=== PATIENT | male | born 1970 | race Caucasian/White ===

== ENCOUNTER 2016-12-08 00:31 | Emergency (ER) | payer BC ==
[~2016-12-08] VITALS: Ht 185.4 cm; Wt 88.0 kg
[~2016-12-08 00:31] MED LIST: AMLO10TA2 PO; ASPI-351; INFL100P IV
[2016-12-08 00:34] VITALS: BP 188/98; PULSE 82; RESP 16; TEMP 97.8; O2SAT 98
[2016-12-08 00:53] VITALS: BP 142/90; PULSE 93; RESP 18; O2SAT 98
[2016-12-08] MEDS ORDERED: SODIUM CHLOR 0.9% 1000 ML INJ 1,000 ML IV ONE (01:30)
[2016-12-08] MEDS ORDERED: KETOROLAC TROMETHAMINE 30 MG/ML (IVP) VIAL IV PUSH ONE (01:30)
--- NOTE | 2016-12-08 01:47 | RADRPT ---
EXAM DATE/TIME: 12/08/2016 01:28 [facility] COMPARISON: No previous studies available for comparison. INDICATIONS : Left sided abdominal pain. ORAL CONTRAST: No oral contrast ingested. RADIATION DOSE: 13.68 CTDIvol (mGy) MEDICAL HISTORY : Ulcerative colitis. Hypertension. Diverticulitis. SURGICAL HISTORY : None. ENCOUNTER: Initial ACUITY: 2 months PAIN SCALE: 7/10 LOCATION: Left abdomen TECHNIQUE: Volumetric scanning of the abdomen and pelvis was performed. Using automated exposure control and ad justment of the mA and/or kV according to patient size, radiation dose was kept as low as reasonably achievable to obtain optimal diagnostic quality images. DICOM format image data is available electro nically for review and comparison. FINDINGS: LOWER LUNGS: The visualized lower lungs are clear. LIVER: Diffusely decreased hepatic density characteristic of fatty infiltration. There is no dilation of th e biliary tree. No calcified gallstones. SPLEEN: Normal size without lesion. PANCREAS: Within normal limits. KIDNEYS: Normal in size and shape. Multiple nonobstructing subcentimeter calculi in the collecting system of t he left kidney. No hydronephrosis or hydroureter. ADRENAL GLANDS: Within normal limits. VASCULAR: There is no aortic aneurysm. BOWEL/MESENTERY: A few diverticula in the sigmoid colon without diverticulitis. ABDOMINAL WALL: Within normal limits. RETROPERITONEUM: There is no lymphadenopathy. BLADDER: No wall thickening or mass. REPRODUCTIVE: Prostate is prominent at 5.2 cm. INGUINAL: There is no lymphadenopathy or hernia. MUSCULOSKELETAL: Within normal limits for patient age. CONCLUSION: 1. There are multiple subcentimeter nonobstructing calculi in the left renal collecting system. No ur eteric stones or hydronephrosis, however. 2. Diffuse hepatic fatty infiltration. 3. Enlarged prostate. Jhonathan Munoz MD on December 08, 2016 at 1:42 Board Certified Radiologist. This report was verified electronically.
--- NOTE | 2016-12-08 02:06 | RADRPT ---
EXAM DATE/TIME: 12/08/2016 01:54 [facility] COMPARISON: CHEST SINGLE AP, April 12, 2016, 15:52. INDICATIONS : Left lower chest pain for several weeks. MEDICAL HISTORY : None. SURGICAL HISTORY : None. ENCOUNTER: Initial ACUITY: 2 weeks PAIN SCORE: 7/10 LOCATION: Left chest FINDINGS: PA and lateral views of the chest demonstrate the lungs to be symmetrically aerated without evidence of mass, infiltrate or effusion. The cardiomediastinal contours are unremarkable. Osseous structure s are intact with a dextroscoliosis of the dorsal spine. CONCLUSION: No acute cardiopulmonary process. Jhonathan Munoz MD on December 08, 2016 at 2:04 Board Certified Radiologist. This report was verified electronically.
[2016-12-08 02:34] LABS: AUTOMATED NEUTROPHIL # 4.3 TH/MM3 (1.8-7.7); BASOPHIL # 0.1 TH/MM3 (0-0.2); BASOPHIL % 0.9 % (0.0-2.0); BLOOD, URINE NEG (NEG); EOSINOPHIL # 0.2 TH/MM3 (0-0.4); EOSINOPHIL % 2.1 % (0.0-4.0); GLUCOSE,URINE NEG (NEG); HEMATOCRIT 46.8 % (39.0-51.0); HEMO FLAGS DIFF FINAL; KETONE, URINE TRACE mg/dL (NEG); LYMPHOCYTE # 3.5 TH/MM3 (1.0-4.8); MEAN CELL VOLUME 89.1 FL (80.0-100.0); MEAN CORPUSCULAR HEMOGLOBIN 30.7 PG (27.0-34.0); MEAN CORPUSCULAR HGB CONC 34.4 % (32.0-36.0); MONO % 12.8 % (0.0-8.0); MUCUS URINE FEW /lpf (OCC); NEUT % 46.2 % (16.0-70.0); NITRITE,URINE NEG (NEG); PLATELET COUNT 291 TH/MM3 (150-450); RED BLOOD COUNT 5.25 MIL/MM3 (4.50-5.90); RED CELL DISTRIBUTION WIDTH 12.6 % (11.6-17.2); URINE COLOR LIGHT-YELLOW (YELLW/STRAW); WHITE BLOOD COUNT 9.3 TH/MM3 (4.0-11.0)
[2016-12-08 02:35] LABS: COMMENT (UR) CULT NOT INDICATED; CULTURE IF INDICATED CULT NOT INDICATED
[2016-12-08 02:58] LABS: ALKALINE PHOSPHATASE 106 U/L (45-117); TOTAL BILIRUBIN ADULT 0.7 MG/DL (0.2-1.0)
[2016-12-08 03:15] LABS: ALT (GPT) 48 U/L (12-78); ANION GAP 8 MEQ/L (5-15); AST (GOT) 30 U/L (15-37); BLOOD UREA NITROGEN 14 MG/DL (7-18); CHLORIDE 102 MEQ/L (98-107); GLOMERULAR FILTRATION RATE 71 ML/MIN (>89); POTASSIUM 3.2 MEQ/L (3.5-5.1); SODIUM (NA) 138 MEQ/L (136-145)
--- NOTE | 2016-12-08 03:55 | PD ---
HPI Chief Complaint: Abdominal Pain Time Seen by Provider: 01:16 Travel History International Travel<30 days: No Contact w/Intl Traveler<30days: No Traveled to known affect area: No History of Present Illness HPI Patient is a 46-year-old male who comes in complaining of left-sided upper abdominal pain. He says he has had the pain on and off for the past 4 months. He says the pain seems to be getting a little bit worse, so he came in. He says the pain radiates around to his left flank. He denies any urinary symptoms. He denies any nausea or vomiting. He does have history of ulcerative colitis, and says recently he has developed some lower abdominal pain which is consistent with his ulcerative colitis. He denies any diarrhea or constipation. He denies having blood in his stool. 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 He has not had any fever or chills. PFSH Past Medical History Asthma: Yes (CHILDHOOD) Blood Disorders: No Anxiety: No Depression: No Heart Rhythm Problems: No Cancer: No Cardiac Catheterization: No Cardiovascular Problems: Yes High Cholesterol: No Congestive Heart Failure: No Diabetes: No Diminished Hearing: No Endocrine: No Gastrointestinal Disorders: Yes (ULCERATIVE COLITIS) GERD: Yes Genitourinary: No Hiatal Hernia: No Hypertension: Yes Immune Disorder: No Implanted Vascular Access Dvce: No Musculoskeletal: No Neurologic: No Psychiatric: No Reproductive: No Respiratory: No Immunizations Current: No Ulcer: Yes Past Surgical History Surgical History: No Previous Surgery Body Medical Devices: ULCERATIVE COLITIS Coronary Artery Bypass Graft: No Other Surgery: No Social History Alcohol Use: Yes (RARELY) Tobacco Use: No Substance Use: No Allergies-Medications (Allergen,Severity, Reaction): Coded Allergies: Azathioprine Sodium (Verified Allergy, Severe, NAUSEA, 12/08/16) Clindamycin (Verified Allergy, Severe, NAUSEA, 12/08/16) Erythromycins (Verified Allergy, Severe, Nausea/Vomiting, 12/08/16) EFFECTS COLITIS Imuran (Verified Allergy, Severe, NAUSEA, 12/08/16) Reported Meds & Prescriptions Reported Meds & Active Scripts Active Reported Amlodipine (Amlodipine Besylate) 10 Mg Tab 10 Mg PO DAILY Qc Aspirin Low Dose (Aspirin) 81 Mg Tab Remicade Inj (Infliximab) 100 Mg Inj 925 Mg IV Q8WEEK Review of Systems Except as stated in HPI: all other systems reviewed are Neg General / Constitutional: No: Fever, Chills HENT: No: Headaches, Lightheadedness Cardiovascular: No: Chest Pain or Discomfort Gastrointestinal: Positive: Abdominal Pain, No: Nausea, Vomiting Genitourinary: Positive: Flank Pain Skin: No Rash, No Change in Pigmentation Neurologic: No: Weakness, Dizziness Physical Exam Narrative GENERAL: Awake and alert, in no acute distress. SKIN: Focused skin assessment warm/dry. HEAD: Atraumatic. Normocephalic. EYES: Pupils equal and round. No scleral icterus. ENT: Mucous membranes pink and moist. NECK: Trachea midline. No JVD. CARDIOVASCULAR: Regular rate and rhythm. No murmur appreciated. RESPIRATORY: No accessory muscle use. Clear to auscultation. Breath sounds equal bilaterally. GASTROINTESTINAL: Abdomen soft, non-tender, nondistended. Mild left CVA tenderness. MUSCULOSKELETAL: No obvious deformities. No clubbing. No cyanosis. No edema. NEUROLOGICAL: Awake and alert. No obvious cranial nerve deficits. Motor grossly within normal limits. Normal speech. PSYCHIATRIC: Appropriate mood and affect; insight and judgment normal. Data Data Last Documented VS Vital Signs Date Time Temp Pulse Resp B/P Pulse Ox O2 Delivery O2 Flow Rate FiO2 12/08/16 04:00 98.1 86 18 138/78 100 12/08/16 00:53 Room Air Orders Complete Blood Count With Diff (12/08/16 01:23) Comprehensive Metabolic Panel (12/08/16 01:23) Urinalysis - C+S If Indicated (12/08/16 01:23) Chest, Pa & Lat (12/08/16 ) Ct Abd/Pel W/O Iv Contrast (12/08/16 ) Iv Access Insert/Monitor (12/08/16 01:23) Sodium Chlor 0.9% 1000 Ml Inj (Ns 1000 M (12/08/16 01:30) Ketorolac Inj (Toradol Inj) (12/08/16 01:30) Labs Laboratory Tests Test 12/08/16 01:37 White Blood Count 9.3 TH/MM3 Red Blood Count 5.25 MIL/MM3 Hemoglobin 16.1 GM/DL Hematocrit 46.8 % Mean Corpuscular Volume 89.1 FL Mean Corpuscular Hemoglobin 30.7 PG Mean Corpuscular Hemoglobin 34.4 % Concent Red Cell Distribution Width 12.6 % Platelet Count 291 TH/MM3 Mean Platelet Volume 8.6 FL Neutrophils (%) (Auto) 46.2 % Lymphocytes (%) (Auto) 38.0 % Monocytes (%) (Auto) 12.8 % Eosinophils (%) (Auto) 2.1 % Basophils (%) (Auto) 0.9 % Neutrophils # (Auto) 4.3 TH/MM3 Lymphocytes # (Auto) 3.5 TH/MM3 Monocytes # (Auto) 1.2 TH/MM3 Eosinophils # (Auto) 0.2 TH/MM3 Basophils # (Auto) 0.1 TH/MM3 CBC Comment DIFF FINAL Differential Comment Urine Color LIGHT-YELLOW Urine Turbidity CLEAR Urine pH 6.0 Urine Specific [place] 1.009 Urine Protein NEG mg/dL Urine Glucose (UA) NEG mg/dL Urine Ketones TRACE mg/dL Urine Occult Blood NEG Urine Nitrite NEG Urine Bilirubin NEG Urine Urobilinogen LESS THAN 2.0 MG/DL Urine Leukocyte Esterase NEG Urine RBC LESS THAN 1 /hpf Urine WBC LESS THAN 1 /hpf Urine Mucus FEW /lpf Microscopic Urinalysis Comment CULT NOT INDICATED Sodium Level 138 MEQ/L Potassium Level 3.2 MEQ/L Chloride Level 102 MEQ/L Carbon Dioxide Level 28.0 MEQ/L Anion Gap 8 MEQ/L Blood Urea Nitrogen 14 MG/DL Creatinine 1.12 MG/DL Estimat Glomerular Filtration 71 ML/MIN Rate Random Glucose 79 MG/DL Calcium Level 9.4 MG/DL Total Bilirubin 0.7 MG/DL Aspartate Amino Transf 30 U/L (AST/SGOT) Alanine Aminotransferase 48 U/L (ALT/SGPT) Alkaline Phosphatase 106 U/L Total Protein 9.1 GM/DL Albumin 4.7 GM/DL [facility] Medical Decision Making Medical Screen Exam Complete: Yes Emergency Medical Condition: Yes Differential Diagnosis UTI versus renal stone versus musculoskeletal pain versus pneumonia Narrative Course Patient is a 46-year-old male comes in complaining of left upper quadrant and left flank pain. Exam shows mild left CVA tenderness. IV established, labs sent. Labs show no acute abnormalities. Urinalysis is negative for infection. Patient given IV fluids and Toradol. Chest x-ray performed shows no acute abnormalities. CT abdomen and pelvis shows nonobstructing renal stones. Patient reports feeling better. He is informed of the results. Advised to increase his fluid intake. Advised follow-up with urology. Advised to return to the emergency department as needed for any worsening symptoms. Last 24 hours Impressions Chest X-Ray 12/08/16 0000 Signed Impressions: Service Date/Time: Thursday, December 08, 2016 01:54 - CONCLUSION: No acute cardiopulmonary process. Jhonathan Munoz MD Abdomen/Pelvis CT 12/08/16 0000 Signed Impressions: Service Date/Time: Thursday, December 08, 2016 01:28 - CONCLUSION: 1. There are multiple subcentimeter nonobstructing calculi in the left renal collecting system. No ureteric stones or hydronephrosis, however. 2. Diffuse hepatic fatty infiltration. 3. Enlarged prostate. Jhonathan Munoz MD Diagnosis Primary Impression: Renal stones Patient Instructions: General Instructions, Kidney Stones (ED) Additional Instructions: Drink plenty of fluids. Take ibuprofen as needed for pain. Follow-up with urology. Return to the emergency department as needed for any worsening symptoms. Disposition: 01 DISCHARGE HOME Condition: Stable Lulu Boo MD Dec 08, 2016 03:55
[2016-12-08 04:00] VITALS: BP 138/78; PULSE 86; RESP 18; TEMP 98.1; O2SAT 100
== END 2016-12-08 04:02 | disposition home or self-care (01) ==
LOC: NEPE 00:31
DX: N20.0 Calculus of kidney (principal); I10 Essential (primary) hypertension
CPT/HCPCS: 71020; 74176; 80053; 81001; 85025; 99285; J7030

== ENCOUNTER 2016-12-09 15:35 | Observation (INO) | payer BC ==
[2016-12-09 15:37] VITALS: BP 139/72; PULSE 68; RESP 22; TEMP 98.2; O2SAT 98
[2016-12-09 17:05] LABS: BASOPHIL # 0.1 TH/MM3 (0-0.2); BASOPHIL % 0.8 % (0.0-2.0); EOSINOPHIL # 0.1 TH/MM3 (0-0.4); EOSINOPHIL % 0.6 % (0.0-4.0); HEMATOCRIT 44.2 % (39.0-51.0); HEMO FLAGS DIFF FINAL; LYMPH % 14.6 % (9.0-44.0); LYMPHOCYTE # 1.9 TH/MM3 (1.0-4.8); MEAN CORPUSCULAR HEMOGLOBIN 30.5 PG (27.0-34.0); MEAN CORPUSCULAR HGB CONC 34.6 % (32.0-36.0); MONO % 7.4 % (0.0-8.0); NEUT % 76.6 % (16.0-70.0); PLATELET COUNT 282 TH/MM3 (150-450); RED BLOOD COUNT 5.02 MIL/MM3 (4.50-5.90); RED CELL DISTRIBUTION WIDTH 12.7 % (11.6-17.2)
[2016-12-09 17:21] LABS: BICARBONATE 22.3 MEQ/L (21.0-32.0)
[2016-12-09 18:11] VITALS: BP 129/70; PULSE 84; RESP 16; O2SAT 100
[2016-12-09] MEDS ORDERED: SODIUM CHLOR 0.9% 1000 ML INJ 1,000 ML IV SCH (18:19)
--- NOTE | 2016-12-09 18:24 | PD ---
HPI Chief Complaint: Flank/Kidney Pain Time Seen by Provider: 18:16 Travel History International Travel<30 days: No Contact w/Intl Traveler<30days: No Traveled to known affect area: No History of Present Illness HPI 46-year-old male with history of ulcerative colitis here for evaluation of left flank pain that radiates to his left lower abdomen. Pain started yesterday, and the patient was seen in the emergency department and had a CT abdomen pelvis which showed multiple subcentimeter left intrarenal stones without any ureteral stones. The patient was treated and released at that time. Pain returned today around 3:00 PM, sharp/pressure-like, 10 out of 10, constant, associated with nausea and vomiting. Patient also describes some dysuria. He denies hematochezia. No history of abdominal surgeries. PFSH Past Medical History Asthma: Yes (CHILDHOOD) Blood Disorders: No Anxiety: No Depression: No Heart Rhythm Problems: No Cancer: No Cardiac Catheterization: No Cardiovascular Problems: Yes High Cholesterol: No Congestive Heart Failure: No Diabetes: No Diminished Hearing: No Endocrine: No Gastrointestinal Disorders: Yes (ULCERATIVE COLITIS) GERD: Yes Genitourinary: No Hiatal Hernia: No Hypertension: Yes Immune Disorder: No Implanted Vascular Access Dvce: No Kidney Stones: Yes Musculoskeletal: No Neurologic: No Psychiatric: No Reproductive: No Respiratory: No Immunizations Current: No Ulcer: Yes Influenza Vaccination: No Past Surgical History Surgical History: No Previous Surgery Body Medical Devices: ULCERATIVE COLITIS Coronary Artery Bypass Graft: No Other Surgery: No Social History Alcohol Use: Yes (RARELY) Tobacco Use: No Substance Use: No Allergies-Medications (Allergen,Severity, Reaction): Coded Allergies: Azathioprine Sodium (Verified Allergy, Severe, NAUSEA, 12/08/16) Clindamycin (Verified Allergy, Severe, NAUSEA, 12/08/16) Erythromycins (Verified Allergy, Severe, Nausea/Vomiting, 12/08/16) EFFECTS COLITIS Imuran (Verified Allergy, Severe, NAUSEA, 12/08/16) Reported Meds & Prescriptions Reported Meds & Active Scripts Active Reported Amlodipine (Amlodipine Besylate) 10 Mg Tab 10 Mg PO DAILY Qc Aspirin Low Dose (Aspirin) 81 Mg Tab Remicade Inj (Infliximab) 100 Mg Inj 925 Mg IV Q8WEEK Review of Systems Except as stated in HPI: all other systems reviewed are Neg Physical Exam Narrative GENERAL: Well-developed, well-nourished, moderate distress secondary to pain. SKIN: Focused skin assessment warm/dry. No rash. HEAD: Atraumatic. Normocephalic. EYES: Pupils equal and round. No scleral icterus. No injection or drainage. ENT: Mucous membranes pink and moist. NECK: Trachea midline. No JVD. CARDIOVASCULAR: Regular rate and rhythm. RESPIRATORY: No accessory muscle use. Clear to auscultation. Breath sounds equal bilaterally. GASTROINTESTINAL: Abdomen soft, non-tender, nondistended. MUSCULOSKELETAL: No obvious deformities. No clubbing. No cyanosis. No edema. Moderate left CVA tenderness. No right CVA tenderness. No midline vertebral step-off or tenderness. NEUROLOGICAL: Awake and alert. No obvious cranial nerve deficits. Motor grossly within normal limits. Normal speech. PSYCHIATRIC: Appropriate mood and affect; insight and judgment normal. Data Data Last Documented VS Vital Signs Date Time Temp Pulse Resp B/P Pulse Ox O2 Delivery O2 Flow Rate FiO2 12/09/16 18:11 84 16 129/70 100 Room Air 12/09/16 15:37 98.2 Orders Complete Blood Count With Diff (12/09/16 16:17) Urinalysis - C+S If Indicated (12/09/16 16:17) Basic Metabolic Panel (Bmp) (12/09/16 16:17) Ct Abd/Pel W Iv Contrast(Rout) (12/09/16 18:19) Morphine Inj (Morphine Inj) (12/09/16 18:30) Ondansetron Inj (Zofran Inj) (12/09/16 18:30) Sodium Chlor 0.9% 1000 Ml Inj (Ns 1000 M (12/09/16 18:19) Iohexol 350 Inj (Omnipaque 350 Inj) (12/09/16 18:42) Ketorolac Inj (Toradol Inj) (12/09/16 19:15) Tamsulosin (Flomax) (12/09/16 19:15) Morphine Inj (Morphine Inj) (12/09/16 20:00) Ondansetron Inj (Zofran Inj) (12/09/16 20:00) Labs Laboratory Tests Test 12/09/16 12/09/16 16:40 16:45 White Blood Count 13.0 TH/MM3 Red Blood Count 5.02 MIL/MM3 Hemoglobin 15.3 GM/DL Hematocrit 44.2 % Mean Corpuscular Volume 88.0 FL Mean Corpuscular Hemoglobin 30.5 PG Mean Corpuscular Hemoglobin 34.6 % Concent Red Cell Distribution Width 12.7 % Platelet Count 282 TH/MM3 Mean Platelet Volume 8.3 FL Neutrophils (%) (Auto) 76.6 % Lymphocytes (%) (Auto) 14.6 % Monocytes (%) (Auto) 7.4 % Eosinophils (%) (Auto) 0.6 % Basophils (%) (Auto) 0.8 % Neutrophils # (Auto) 10.0 TH/MM3 Lymphocytes # (Auto) 1.9 TH/MM3 Monocytes # (Auto) 1.0 TH/MM3 Eosinophils # (Auto) 0.1 TH/MM3 Basophils # (Auto) 0.1 TH/MM3 CBC Comment DIFF FINAL Differential Comment Sodium Level 138 MEQ/L Potassium Level 4.0 MEQ/L Chloride Level 103 MEQ/L Carbon Dioxide Level 22.3 MEQ/L Anion Gap 13 MEQ/L Blood Urea Nitrogen 16 MG/DL Creatinine 1.43 MG/DL Estimat Glomerular Filtration 53 ML/MIN Rate Random Glucose 160 MG/DL Calcium Level 9.9 MG/DL Urine Color YELLOW Urine Turbidity CLEAR Urine pH 5.5 Urine Specific [place] 1.021 Urine Protein NEG mg/dL Urine Glucose (UA) 300 mg/dL Urine Ketones 40 mg/dL Urine Occult Blood NEG Urine Nitrite NEG Urine Bilirubin NEG Urine Urobilinogen LESS THAN 2.0 MG/DL Urine Leukocyte Esterase NEG Urine WBC LESS THAN 1 /hpf Urine Squamous Epithelial <1 /hpf Cells Urine Mucus FEW /lpf Microscopic Urinalysis Comment CULT NOT INDICATED MDM Medical Decision Making Medical Screen Exam Complete: Yes Emergency Medical Condition: Yes Medical Record Reviewed: Yes Differential Diagnosis Nephrolithiasis, ureterolithiasis, pyelonephritis, colitis, diverticulitis, Narrative Course Vital signs show heart rate 68, blood pressure 139/72, pulse ox 98% on room air , oral temp of 98.2F. CBC shows WBC 13, hemoglobin 15.3, hematocrit 44.2, platelets 282, neutrophils 76.6%. BMP is remarkable for creatinine 1.43, GFR 53, random glucose 160. UA shows 300 glucose, 40 ketones, few mucus, negative occult blood, negative nitrites, negative leukocyte esterase. CT abdomen pelvis: CONCLUSION: 1. Distal left ureteral calculus measuring 3 mm with mild hydro-nephrosis and hydroureter and inflammatory change surrounding the left kidney. 2. Moderate hepatic steatosis. 3. Small hiatal hernia. Patient was initially given a dose of morphine and Zofran and a liter of normal saline IV. On reassessment he is still complaining of pain. He was given a dose of Toradol and was reassessed about 45 minutes later. He is still complaining of pain, nausea, and had a couple more episodes of vomiting. Pain is 8 out of 10 after receiving a dose of morphine and a dose of Toradol. I will give him another dose of morphine. Given ongoing pain with nausea, he'll be admitted for overnight observation for further management of his symptoms with ureterolithiasis. Case discussed with hospitalist Dr. Paul who will admit the patient to his service for overnight observation. Diagnosis Primary Impression: Ureterolithiasis Additional Impressions: Left flank pain Nausea and vomiting Qualified Code: R11.2 - Nausea and vomiting, intractability of vomiting not specified, unspecified vomiting type Admitting Information Admitting Physician Requests: Observation Jatin Ritchie MD Dec 09, 2016 18:24
[2016-12-09 18:29] LABS: BLOOD, URINE NEG (NEG); COMMENT (UR) CULT NOT INDICATED; CULTURE IF INDICATED CULT NOT INDICATED; GLUCOSE,URINE 300 mg/dL (NEG); KETONE, URINE 40 mg/dL (NEG); MUCUS URINE FEW /lpf (OCC); NITRITE,URINE NEG (NEG); PH, URINE 5.5 (5.0-8.5); SQUAMOUS EPITHELIAL CELL URINE <1 /hpf (0-5); URINE COLOR YELLOW (YELLW/STRAW)
[2016-12-09] MEDS ORDERED: MORPHINE SULFATE 4 MG/ML INJ IV PUSH ONE ×2 (18:30→20:00)
[2016-12-09] MEDS ORDERED: ONDANSETRON HCL 4 MG/2 ML VIAL IVP ONE (18:30)
[2016-12-09] MEDS ORDERED: IOHEXOL 350 MG/ML 10 ML VIAL (for RAD DIAG) IV ONE (18:42)
--- NOTE | 2016-12-09 18:56 | RADRPT ---
EXAM DATE/TIME: 12/09/2016 18:35 [facility] COMPARISON: CT ABDOMEN & PELVIS W CONTRAST, September 02, 2010, 18:41. INDICATIONS : Left flank pain; increased pain since yesterday with nausea and vomiting. IV CONTRAST: 71 cc Omnipaque 350 (iohexol) IV ORAL CONTRAST: No oral contrast ingested. RADIATION DOSE: 9.96 CTDIvol (mGy) MEDICAL HISTORY : Cardiovascular disease. Hypertension. SURGICAL HISTORY : None. ENCOUNTER: Subsequent ACUITY: 2 days PAIN SCALE: 10/10 LOCATION: Left flank TECHNIQUE: Volumetric scanning of the abdomen and pelvis was performed. Using automated exposure control and ad justment of the mA and/or kV according to patient size, radiation dose was kept as low as reasonably achievable to obtain optimal diagnostic quality images. DICOM format image data is available electro nically for review and comparison. FINDINGS: LOWER LUNGS: The visualized lower lungs are clear. LIVER: Homogeneous density without lesion. There is no dilation of the biliary tree. No calcified gallston es. There is moderate hepatic steatosis. SPLEEN: Normal size without lesion. PANCREAS: Within normal limits. KIDNEYS: The right kidney is unremarkable in appearance. Left kidney is normal in size and shape with mildly d elayed nephrogram and mild hydronephrosis. There is surrounding inflammatory change along the medial and anterior aspect of the kidney extending along the psoas muscle. There is slight prominence of the left ureter with the distal left ureteral calculus which is projected at the level of the ureteroves icular junction. This measures 3 mm in diameter. ADRENAL GLANDS: Within normal limits. VASCULAR: There is no aortic aneurysm. BOWEL/MESENTERY: The stomach, small bowel, and colon demonstrate no acute abnormality. There is no free intraperitone al air or fluid. There is a small hiatal hernia. ABDOMINAL WALL: Within normal limits. RETROPERITONEUM: There is no lymphadenopathy. BLADDER: No wall thickening or mass. REPRODUCTIVE: Within normal limits. INGUINAL: There is no lymphadenopathy or hernia. MUSCULOSKELETAL: Within normal limits for patient age. CONCLUSION: 1. Distal left ureteral calculus measuring 3 mm with mild hydro-nephrosis and hydroureter and inflamm atory change surrounding the left kidney. 2. Moderate hepatic steatosis. 3. Small hiatal hernia. Eduin Hussein MD on December 09, 2016 at 18:52 Board Certified Radiologist. This report was verified electronically.
[2016-12-09] MEDS ORDERED: KETOROLAC TROMETHAMINE 30 MG/ML (IVP) VIAL IV PUSH ONE (19:15)
[2016-12-09] MEDS ORDERED: TAMSULOSIN HCL 0.4 MG CAP PO ONE (19:15)
[2016-12-09] MEDS: SODIUM CHLOR 0.9% 1000 ML INJ 1,000 ML IV SCH (19:52)
[2016-12-09] MEDS ORDERED: ONDANSETRON HCL 4 MG/2 ML VIAL IV PUSH ONE (20:00)
[2016-12-09] MEDS ORDERED: BISACODYL 10 MG SUPP RECTAL PRN (20:00)
[2016-12-09] MEDS ORDERED: ONDANSETRON HCL 4 MG/2 ML VIAL IVP PRN (20:00)
[2016-12-09] MEDS ORDERED: MAGNESIUM HYDROXIDE SUSP 30 ML CUP PO PRN (20:00)
[2016-12-09] MEDS ORDERED: ACETAMINOPHEN 325 MG TAB PO PRN ×2 (20:00)
[2016-12-09] MEDS ORDERED: LACTULOSE SYRUP 20 GM/30 ML CUP PO PRN (20:00)
[2016-12-09] MEDS ORDERED: MORPHINE SULFATE 4 MG/ML INJ IV PRN ×2 (20:00)
[2016-12-09] MEDS ORDERED: SENNOSIDES 8.6 MG TAB PO PRN (20:00)
[2016-12-09] MEDS ORDERED: NALOXONE HCL 0.4 MG/ML AMP IV PRN (20:00)
--- NOTE | 2016-12-09 20:57 | HHI.HP ---
[facility] No Primary Care Physician Admission Diagnosis ureterolithiasis, intractable pain, nausea and vomiting Diagnoses: Chief Complaint: abdominal pain, N/V Travel History International Travel<30 Days: No Contact w/Intl Traveler <30 Da: No Traveled to Known Affected Are: No History of Present Illness Written by HILDA Aleman acting as scribe for Dr. Kaur] on 12/09/16 at 20:53. 46 y/o male with a history of HTN, ulcerative colitis presented to the ED with complaints of nausea, vomiting and left abdominal pain. Patient was seen in the ED on Saturday, diagnosed with a kidney stone and discharged. He states since Saturday the pain has gotten much worse and it radiates to his back. He has been nauseated and vomiting every day, unable to keep anything down. Denies any chest pain, sob, or fevers. He does state he has felt very cold. Review of Systems Constitutional: COMPLAINS OF: Chills, DENIES: Fever Respiratory: DENIES: Cough, Shortness of breath Cardiovascular: DENIES: Chest pain, Lower Extremity Edema Gastrointestinal: COMPLAINS OF: Abdominal pain, Diarrhea, Nausea, Vomiting, DENIES: Constipation Genitourinary: DENIES: Hematuria, Dysuria Musculoskeletal: COMPLAINS OF: Back pain, DENIES: Neck pain Integumentary: DENIES: Rash Hematologic/lymphatic: DENIES: Lymphadenopathy Immunologic/allergic: DENIES: Urticaria Neurologic: DENIES: Headache Past Family Social History Past Medical History Ulcerative colitis HTN Past Surgical History Patient denies any surgical history Reported Medications Reported Meds & Active Scripts Active Reported Amlodipine (Amlodipine Besylate) 10 Mg Tab 10 Mg PO DAILY Qc Aspirin Low Dose (Aspirin) 81 Mg Tab Remicade Inj (Infliximab) 100 Mg Inj 925 Mg IV Q8WEEK Allergies: Coded Allergies: Azathioprine Sodium (Verified Allergy, Severe, NAUSEA, 12/08/16) Clindamycin (Verified Allergy, Severe, NAUSEA, 12/08/16) Erythromycins (Verified Allergy, Severe, Nausea/Vomiting, 12/08/16) EFFECTS COLITIS Imuran (Verified Allergy, Severe, NAUSEA, 12/08/16) Active Ordered Medications Current Medications Medications (Trade) Dose Ordered Sig/[place] Route Start Time Stop Time Status Last Admin (NS 1000 ml Inj) 1,000 ml @ 100 mls/hr Q10H IV 12/09/16 19:52 12/09/16 19:52 (Tylenol) 650 mg Q4H PRN PO 12/09/16 20:00 (Zofran Inj) 4 mg Q6H PRN IVP 12/09/16 20:00 (Tylenol) 650 mg Q6H PRN PO 12/09/16 20:00 (Morphine Inj) 2 mg Q3H PRN IV 12/09/16 20:00 (Morphine Inj) 4 mg Q3H PRN IV 12/09/16 20:00 (Narcan Inj) 0.4 mg UNSCH PRN IV 12/09/16 20:00 (Milk Of Magnesia Liq) 30 ml Q12H PRN PO 12/09/16 20:00 (Senokot) 17.2 mg Q12H PRN PO 12/09/16 20:00 (Dulcolax Supp) 10 mg DAILY PRN RECTAL 12/09/16 20:00 (Lactulose Liq) 30 ml DAILY PRN PO 12/09/16 20:00 Family History Mom: Heart disease Dad: Cancer Social History Tobacco use: Denies Alcohol use: Rarely Illicit drug use: Denies Physical Exam Vital Signs Vital Signs Date Time Temp Pulse Resp B/P Pulse Ox O2 Delivery O2 Flow Rate FiO2 12/09/16 18:11 84 16 129/70 100 Room Air 12/09/16 15:37 98.2 68 22 139/72 98 Physical Exam GENERAL: This is a well-nourished, well-developed patient, in no apparent distress. SKIN: No rashes, ecchymoses or lesions. Cool and dry. HEAD: Atraumatic. Normocephalic. EYES: Pupils equal round and reactive. Extraocular motions intact. ENT: Nose without bleeding, purulent drainage or septal hematoma. Throat without erythema, tonsillar hypertrophy or exudate. Uvula midline. Airway patent. NECK: Trachea midline. No JVD or lymphadenopathy. Supple, nontender, no meningeal signs. CARDIOVASCULAR: Regular rate and rhythm without murmurs, gallops, or rubs. RESPIRATORY: Clear to auscultation. Breath sounds equal bilaterally. No wheezes , rales, or rhonchi. GASTROINTESTINAL: Abdomen soft, LLQ tenderness, nondistended. No hepato- splenomegaly, or palpable masses. No guarding. Left CVA tenderness MUSCULOSKELETAL: Extremities without clubbing, cyanosis, or edema. No joint tenderness, effusion, or edema noted. No calf tenderness. NEUROLOGICAL: Awake and alert. Motor and sensory grossly within normal limits. Normal speech. Laboratory Laboratory Tests Test 12/09/16 12/09/16 16:40 16:45 White Blood Count 13.0 Red Blood Count 5.02 Hemoglobin 15.3 Hematocrit 44.2 Mean Corpuscular Volume 88.0 Mean Corpuscular Hemoglobin 30.5 Mean Corpuscular Hemoglobin 34.6 Concent Red Cell Distribution Width 12.7 Platelet Count 282 Mean Platelet Volume 8.3 Neutrophils (%) (Auto) 76.6 Lymphocytes (%) (Auto) 14.6 Monocytes (%) (Auto) 7.4 Eosinophils (%) (Auto) 0.6 Basophils (%) (Auto) 0.8 Neutrophils # (Auto) 10.0 Lymphocytes # (Auto) 1.9 Monocytes # (Auto) 1.0 Eosinophils # (Auto) 0.1 Basophils # (Auto) 0.1 CBC Comment DIFF FINAL Differential Comment Sodium Level 138 Potassium Level 4.0 Chloride Level 103 Carbon Dioxide Level 22.3 Anion Gap 13 Blood Urea Nitrogen 16 Creatinine 1.43 Estimat Glomerular Filtration 53 Rate Random Glucose 160 Calcium Level 9.9 Urine Color YELLOW Urine Turbidity CLEAR Urine pH 5.5 Urine Specific [place] 1.021 Urine Protein NEG Urine Glucose (UA) 300 Urine Ketones 40 Urine Occult Blood NEG Urine Nitrite NEG Urine Bilirubin NEG Urine Urobilinogen LESS THAN 2.0 Urine Leukocyte Esterase NEG Urine WBC LESS THAN 1 Urine Squamous Epithelial <1 Cells Urine Mucus FEW Microscopic Urinalysis Comment CULT NOT INDICATED Result Diagram: 12/09/16 1640 12/09/16 1640 Imaging Last Impressions Abdomen/Pelvis CT 12/09/161818 Signed Impressions: Service Date/Time: Friday, December 09, 2016 18:35 - CONCLUSION: 1. Distal left ureteral calculus measuring 3 mm with mild hydro-nephrosis and hydroureter and inflammatory change surrounding the left kidney. 2. Moderate hepatic steatosis. 3. Small hiatal hernia. Eduin Hussein MD Assessment and Plan Problem List: (1) Ureterolithiasis ICD Code: N20.1 Status: Acute (2) Acute kidney injury ICD Code: N17.9 Status: Acute (3) Leukocytosis ICD Code: D72.829 Status: Acute Assessment and Plan 46 y/o male with a history of HTN, ulcerative colitis presented to the ED with complaints of nausea, vomiting and left abdominal pain. Ureterolithiasis Abdomen CT reviewed and shows Distal left ureteral calculus measuring 3 mm with mild hydro-nephrosis and hydroureter and inflammatory change surrounding the left kidney. Moderate hepatic steatosis. Small hiatal hernia. -IVF for hydration -Morphine IV for pain management Leukocytosis, likely reactive due to pain from kidney stone UA unremarkable -CBC in AM, cont to trend VONDA, likely due to dehydration -Cont IVF -BMP in AM DVT prophylaxis: SCDs This note was transcribed by georgia Banegas. I, Dr. Ever Paul personally performed the history, physical exam, and medical decision making; and confirmed the accuracy of the information in the transcribed note. Authenticated by Dr. Ever Paul on 12/09/16 at 21:45. Discussed Condition With Patient and ED physician Jazmine Banegas Dec 09, 2016 20:56 Ever Paul MD Dec 09, 2016 21:46
[2016-12-09 21:40] VITALS: BP 127/67; PULSE 77; RESP 14; TEMP 98.4; O2SAT 99
[2016-12-10] VITALS: BP 111/62; PULSE 78; RESP 16; TEMP 97.9; O2SAT 99
[2016-12-10 04:15] VITALS: BP 125/75; PULSE 80; RESP 14; TEMP 98.1; O2SAT 98
[2016-12-10] MEDS: SODIUM CHLOR 0.9% 1000 ML INJ 1,000 ML IV SCH ×2 (05:40→16:25)
[2016-12-10 07:09] VITALS: BP 118/71; PULSE 78; RESP 12; TEMP 98.6; O2SAT 99
[2016-12-10] MEDS ORDERED: ACETAMINOPHEN/HYDROcodone 325 MG/5 MG TAB PO PRN (07:45)
[2016-12-10 08:24] LABS: AUTOMATED NEUTROPHIL # 9.1 TH/MM3 (1.8-7.7); BASOPHIL % 0.2 % (0.0-2.0); HEMATOCRIT 42.1 % (39.0-51.0); HEMO FLAGS DIFF FINAL; LYMPHOCYTE # 1.8 TH/MM3 (1.0-4.8); MEAN CELL VOLUME 89.6 FL (80.0-100.0); MEAN CORPUSCULAR HEMOGLOBIN 30.3 PG (27.0-34.0); MEAN CORPUSCULAR HGB CONC 33.9 % (32.0-36.0); MONO % 10.4 % (0.0-8.0); NEUT % 74.4 % (16.0-70.0); PLATELET COUNT 233 TH/MM3 (150-450); RED CELL DISTRIBUTION WIDTH 12.9 % (11.6-17.2); WHITE BLOOD COUNT 12.3 TH/MM3 (4.0-11.0)
[2016-12-10 08:50] LABS: POTASSIUM 3.6 MEQ/L (3.5-5.1)
--- NOTE | 2016-12-10 10:21 | HHI.PR ---
Subjective Remarks Follow-up for nephrolithiasis. The patient reports some improvement in flank pain overnight, although it is still present. He continues to have some nausea , but has been tolerating diet with no vomiting. He has not noticed if he has passed the stone. He denies any hematuria. Objective Vitals Vital Signs Date Time Temp Pulse Resp B/P Pulse Ox O2 Delivery O2 Flow Rate FiO2 12/10/16 07:09 98.6 78 12 118/71 99 12/10/16 04:15 98.1 80 14 125/75 98 12/10/16 00:00 97.9 78 16 111/62 99 12/09/16 21:40 98.4 77 14 127/67 99 12/09/16 18:11 84 16 129/70 100 Room Air 12/09/16 15:37 98.2 68 22 139/72 98 I/O 12/09/16 12/09/16 12/09/16 12/10/16 12/10/16 12/10/16 07:00 15:00 23:00 07:00 15:00 23:00 Intake Total 1240 ml Output Total 1100 ml Balance 140 ml Intake Oral 240 ml IV Total 1000 ml Output Urine Total 1100 ml Result Diagram: 12/10/16 0642 12/10/16 0642 Imaging Last Impressions Abdomen/Pelvis CT 12/09/161818 Signed Impressions: Service Date/Time: Friday, December 09, 2016 18:35 - CONCLUSION: 1. Distal left ureteral calculus measuring 3 mm with mild hydro-nephrosis and hydroureter and inflammatory change surrounding the left kidney. 2. Moderate hepatic steatosis. 3. Small hiatal hernia. Eduin Hussein MD Objective Remarks GENERAL: Well-developed well-nourished. In no acute distress. SKIN: Warm and dry. No lesions noted. HEENT: Normocephalic. Pupils equal and round. Mucous membranes pink and moist. CARDIOVASCULAR: Regular rate and rhythm. No murmur appreciated. RESPIRATORY: No accessory muscle use. Clear to auscultation. Breath sounds equal bilaterally. GASTROINTESTINAL: Abdomen soft, non-tender, nondistended. Bowel sounds x4. MUSCULOSKELETAL: No obvious deformities. No clubbing or cyanosis. No edema. NEUROLOGICAL: Awake and alert. No focal neurological deficits. Moves upper and lower extremities spontaneously. Normal speech. PSYCHIATRIC: Appropriate mood and affect; insight and judgment normal. A/P Problem List: (1) Ureterolithiasis ICD Code: N20.1 Status: Acute (2) Acute kidney injury ICD Code: N17.9 Status: Acute (3) Leukocytosis ICD Code: D72.829 Status: Acute Assessment and Plan 46 y/o male with a history of HTN, ulcerative colitis presented to the ED with complaints of nausea, vomiting and left abdominal pain. Ureterolithiasis Abdomen CT reviewed and shows distal left ureteral calculus measuring 3 mm with mild hydro-nephrosis and hydroureter and inflammatory change surrounding the left kidney. Moderate hepatic steatosis. Small hiatal hernia. -IVF for hydration -[place] and Morphine IV prn for pain management -Start Flomax -Strain urine -Check renal ultrasound -Likely outpatient urology follow-up, but will consult if needed Leukocytosis, likely reactive due to pain from kidney stone: UA unremarkable. Afebrile. -Follow CBC VONDA, probably multifactorial from dehydration from vomiting and postrenal from hydronephrosis. Creatinine 1.43 to admission, previously 1.12 on 12/08/16. Creatinine did slightly increase overnight at 1.53. -Cont IVF -Follow BMP Hepatic steatosis: Incidentally seen on abdominal CT. Patient informed of the findings. -Low fat diet -Follow-up with gastroenterology, sees Dr. Patton, for outpatient monitoring DVT prophylaxis: SCDs Discharge Planning Clinically improving, but still with multiple lab abnormalities. Monitor clinically, possible discharge later today or tomorrow Juan Phelps Dec 10, 2016 10:21
[2016-12-10 11:14] VITALS: BP 131/78; PULSE 75; RESP 20; TEMP 97.7; O2SAT 95
--- NOTE | 2016-12-10 12:20 | RADRPT ---
EXAM DATE/TIME: 12/10/2016 10:44 [facility] COMPARISON: CT ABDOMEN & PELVIS W CONTRAST, December 09, 2016, 18:35. INDICATIONS : Flank pain. Hydronephrosis seen on CT. MEDICAL HISTORY : Hypertension. Diverticulitis. Gastroesophageal reflux disease. Renal calculi. Ulcer. Chest pain. Asth ma. SURGICAL HISTORY : None. ENCOUNTER: Initial ACUITY: 2 days PAIN SCORE: 4/10 LOCATION: Bilateral flank MEASUREMENTS: RIGHT KIDNEY: 10.8 x 5.3 x 4.3 cm LEFT KIDNEY: 12.9 x 5.1 x 5.4 cm FINDINGS: RIGHT KIDNEY: Renal cortex is normal in thickness and echotexture. No hydronephrosis, stone, or mass. LEFT KIDNEY: Renal cortex is normal in thickness and echotexture. No hydronephrosis, stone, or mass. BLADDER: There appears be a stone at the left UVJ. Within normal limits given the degree of distension. CONCLUSION: Left UVJ stone. Demetrio Samson MD on December 10, 2016 at 12:15 Board Certified Radiologist. This report was verified electronically.
[2016-12-10 15:33] VITALS: BP 115/61; PULSE 82; RESP 16; TEMP 97.6; O2SAT 94
[2016-12-10 20:46] VITALS: BP 113/71; PULSE 85; RESP 20; TEMP 98.7; O2SAT 96
[2016-12-10] MEDS ORDERED: TAMSULOSIN HCL 0.4 MG CAP PO SCH (21:00)
[2016-12-11 00:29] VITALS: BP 108/70; PULSE 79; RESP 20; TEMP 98.1; O2SAT 95
[2016-12-11] MEDS: SODIUM CHLOR 0.9% 1000 ML INJ 1,000 ML IV SCH (01:52)
[2016-12-11 06:41] VITALS: BP 106/66; PULSE 70; RESP 18; TEMP 97.8; O2SAT 95
[2016-12-11 07:05] VITALS: BP 97/66; PULSE 71; RESP 16; TEMP 97.6; O2SAT 96
[2016-12-11 09:21] LABS: AUTOMATED NEUTROPHIL # 6.9 TH/MM3 (1.8-7.7); BASOPHIL # 0.1 TH/MM3 (0-0.2); BASOPHIL % 0.5 % (0.0-2.0); EOSINOPHIL # 0.1 TH/MM3 (0-0.4); EOSINOPHIL % 0.7 % (0.0-4.0); HEMATOCRIT 40.5 % (39.0-51.0); HEMO FLAGS DIFF FINAL; LYMPH % 22.8 % (9.0-44.0); LYMPHOCYTE # 2.5 TH/MM3 (1.0-4.8); MEAN CORPUSCULAR HEMOGLOBIN 30.7 PG (27.0-34.0); MEAN CORPUSCULAR HGB CONC 34.5 % (32.0-36.0); MONO % 12.3 % (0.0-8.0); NEUT % 63.7 % (16.0-70.0); PLATELET COUNT 209 TH/MM3 (150-450); RED BLOOD COUNT 4.55 MIL/MM3 (4.50-5.90); RED CELL DISTRIBUTION WIDTH 12.9 % (11.6-17.2); WHITE BLOOD COUNT 10.9 TH/MM3 (4.0-11.0)
[2016-12-11 09:47] LABS: BICARBONATE 25.4 MEQ/L (21.0-32.0); POTASSIUM 3.7 MEQ/L (3.5-5.1)
--- NOTE | 2016-12-11 10:45 | HHI.PR ---
Subjective Remarks Follow-up for nephrolithiasis and renal colic. The patient passed the kidney stone overnight, collected in sample cup at bedside. He still has some mild left flank pain, but states it is improved and he has not required any pain medication overnight. Tolerating oral intake. Objective Vitals Vital Signs Date Time Temp Pulse Resp B/P Pulse Ox O2 Delivery O2 Flow Rate FiO2 12/11/16 07:05 97.6 71 16 97/66 96 12/11/16 06:41 97.8 70 18 106/66 95 12/11/16 00:29 98.1 79 20 108/70 95 12/10/16 20:46 98.7 85 20 113/71 96 12/10/16 15:33 97.6 82 16 115/61 94 12/10/16 11:14 97.7 75 20 131/78 95 I/O 12/10/16 12/10/16 12/10/16 12/11/16 12/11/16 12/11/16 07:00 15:00 23:00 07:00 15:00 23:00 Intake Total 1240 ml Output Total 1100 ml 350 ml 400 ml 700 ml Balance 140 ml -350 ml -400 ml -700 ml Intake Oral 240 ml IV Total 1000 ml Output Urine Total 1100 ml 350 ml 400 ml 700 ml Result Diagram: 12/11/16 0913 12/11/16 0913 Imaging Last Impressions Renal Ultrasound 12/10/16 0000 Signed Impressions: Service Date/Time: Saturday, December 10, 2016 10:44 - CONCLUSION: Left UVJ stone. Demetrio Samson MD Abdomen/Pelvis CT 12/09/16 1819 Signed Impressions: Service Date/Time: Friday, December 09, 2016 18:35 - CONCLUSION: 1. Distal left ureteral calculus measuring 3 mm with mild hydro-nephrosis and hydroureter and inflammatory change surrounding the left kidney. 2. Moderate hepatic steatosis. 3. Small hiatal hernia. Eduin Hussein MD Objective Remarks GENERAL: Well-developed well-nourished. In no acute distress. SKIN: Warm and dry. No lesions noted. HEENT: Normocephalic. Pupils equal and round. Mucous membranes pink and moist. CARDIOVASCULAR: Regular rate and rhythm. No murmur appreciated. RESPIRATORY: No accessory muscle use. Clear to auscultation. Breath sounds equal bilaterally. GASTROINTESTINAL: Abdomen soft, non-tender, nondistended. Bowel sounds x4. MUSCULOSKELETAL: No obvious deformities. No clubbing or cyanosis. No edema. NEUROLOGICAL: Awake and alert. No focal neurological deficits. Moves upper and lower extremities spontaneously. Normal speech. PSYCHIATRIC: Appropriate mood and affect; insight and judgment normal. A/P Problem List: (1) Ureterolithiasis ICD Code: N20.1 Status: Acute (2) Acute kidney injury ICD Code: N17.9 Status: Acute (3) Leukocytosis ICD Code: D72.829 Status: Acute Assessment and Plan 46 y/o male with a history of HTN, ulcerative colitis presented to the ED with complaints of nausea, vomiting and left abdominal pain. Ureterolithiasis/renal colic: Now with passed stone and improved symptoms, resolved Abdomen CT at admission showed distal left ureteral calculus measuring 3 mm with mild hydro-nephrosis and hydroureter and inflammatory change surrounding the left kidney. Moderate hepatic steatosis. Small hiatal hernia. Renal ultrasound 12/10 showed resolution of hydronephrosis and continued left ureterovesicular junction stone -S/P IVF -Not requiring [place] as needed 24 hours -S/P Flomax -Follow-up with urology as outpatient Leukocytosis, likely reactive due to pain from kidney stone: UA unremarkable. Afebrile. -Resolved on repeat CBC VONDA, probably multifactorial from dehydration from vomiting and postrenal from hydronephrosis. Creatinine 1.43 to admission, previously 1.12 on 12/08/16. Creatinine did slightly increase overnight at 1.53. -Received IVF. Repeat BMP shows improvement in creatinine to 1.16 Hepatic steatosis: Incidentally seen on abdominal CT. Patient informed of the findings. -Low fat diet -Follow-up with gastroenterology, sees Dr. Patton, for outpatient monitoring DVT prophylaxis: SCDs Discharge Planning Discharge patient to home Condition on discharge: Improved Low fat Diet as tolerated Regular activity Rx written: None Follow-up with primary care physician and urologist Juan Clark Dec 11, 2016 10:45
== END 2016-12-11 13:10 | disposition home or self-care (01) ==
LOC: NEPD 15:35 → NEDA 19:54 → NEPGCP 21:35
PROVIDERS: ADMIT Family Medicine; ATTEND Hospitalist
DX: N20.1 Calculus of ureter (principal); N17.9 Acute kidney failure, unspecified; D72.829 Elevated white blood cell count, unspecified; I10 Essential (primary) hypertension; K76.0 Fatty (change of) liver, not elsewhere classified
CPT/HCPCS: 74177; 76775; 80048; 81001; 85025; 96374; 96375; 99285; G0378; J1885; J2270; J2405; J7030; Q9967

== ENCOUNTER 2017-04-08 14:16 | Emergency (ER) | payer BC ==
[~2017-04-08] VITALS: Ht 185.4 cm; Wt 81.5 kg
[2017-04-08 14:17] VITALS: BP 178/103; PULSE 105; RESP 20; TEMP 98.6; O2SAT 100
[2017-04-08] MEDS ORDERED: ASPIRIN 81 MG CHEW TAB PO ONE (14:45)
--- NOTE | 2017-04-08 15:24 | RADRPT ---
EXAM DATE/TIME: 04/08/2017 14:48 [facility] COMPARISON: CHEST PA & LAT, December 08, 2016, 1:54. INDICATIONS : Chest pain, light headed, shaking MEDICAL HISTORY : None. SURGICAL HISTORY : None. ENCOUNTER: Initial ACUITY: 1 day PAIN SCORE: 8/10 LOCATION: Bilateral chest FINDINGS: PA and lateral views of the chest demonstrate the lungs to be symmetrically aerated without evidence of mass, infiltrate or effusion. The cardiomediastinal contours are unremarkable. Osseous structure s are intact. CONCLUSION: No acute disease. Edouard Hollingsworth MD FACR on April 08, 2017 at 15:22 Board Certified Radiologist. This report was verified electronically.
[2017-04-08 15:51] LABS: AUTOMATED NEUTROPHIL # 4.7 TH/MM3 (1.8-7.7); BASOPHIL # 0.1 TH/MM3 (0-0.2); BASOPHIL % 1.2 % (0.0-2.0); EOSINOPHIL % 0.6 % (0.0-4.0); HEMATOCRIT 42.7 % (39.0-51.0); HEMO FLAGS DIFF FINAL; LYMPH % 21.2 % (9.0-44.0); LYMPHOCYTE # 1.6 TH/MM3 (1.0-4.8); MEAN CELL VOLUME 89.6 FL (80.0-100.0); MEAN CORPUSCULAR HEMOGLOBIN 30.7 PG (27.0-34.0); MEAN CORPUSCULAR HGB CONC 34.3 % (32.0-36.0); MONO % 13.6 % (0.0-8.0); NEUT % 63.4 % (16.0-70.0); PLATELET COUNT 270 TH/MM3 (150-450); RED BLOOD COUNT 4.77 MIL/MM3 (4.50-5.90); RED CELL DISTRIBUTION WIDTH 12.6 % (11.6-17.2); WHITE BLOOD COUNT 7.3 TH/MM3 (4.0-11.0)
[2017-04-08 16:02] LABS: ANION GAP 9 MEQ/L (5-15); BICARBONATE 25.4 MEQ/L (21.0-32.0); BLOOD UREA NITROGEN 14 MG/DL (7-18); CHLORIDE 102 MEQ/L (98-107); GLOMERULAR FILTRATION RATE 69 ML/MIN (>89); MAGNESIUM 1.9 MG/DL (1.5-2.5); POTASSIUM 3.6 MEQ/L (3.5-5.1); SODIUM (NA) 136 MEQ/L (136-145)
[2017-04-08 16:06] LABS: APTT (PATIENT) 28.5 SEC (24.3-30.1); PROTHROMBIN TIME - PATIENT 11.3 SEC (9.8-11.6)
[2017-04-08 16:20] LABS: CREATINE KINASE 89 U/L (39-308)
[2017-04-08 16:30] VITALS: BP 135/75; PULSE 84; RESP 16; TEMP 97.8; O2SAT 100
[2017-04-08] MEDS ORDERED: SODIUM CHLOR 0.9% 1000 ML INJ 1,000 ML IV ONE (17:00)
--- NOTE | 2017-04-08 17:08 | PD ---
HPI Chief Complaint: Chest Pain Time Seen by Provider: 14:38 Travel History International Travel<30 days: No Contact w/Intl Traveler<30days: No Traveled to known affect area: No History of Present Illness HPI This is a 46-year-old male presents today with complaints of palpitations and shakiness with associated chronic left sided chest pain. The patient states he' s been seen and evaluated multiple times for this left sided chest pain. He is always been told that it is not cardiac. It is reproducible. He states this is been going on and off for several weeks now. He denies any shortness breath. Denies any diaphoresis. He does report that he's been going through acute life stressors. 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 There are no other complaints time my examination. PFSH Past Medical History Asthma: Yes (Childhood) Blood Disorders: No Anxiety: No Depression: No Heart Rhythm Problems: No Cancer: No Cardiac Catheterization: No Cardiovascular Problems: Yes (HTN) High Cholesterol: No Chest Pain: Yes Congestive Heart Failure: No Diabetes: No Diminished Hearing: No Endocrine: No Gastrointestinal Disorders: Yes (ULCERATIVE COLITIS) GERD: Yes Genitourinary: No Hiatal Hernia: No Heparin Induced Thrombocytopen: No Hypertension: Yes Immune Disorder: No Implanted Vascular Access Dvce: No Kidney Stones: Yes Musculoskeletal: No Neurologic: No Psychiatric: No Reproductive: No Respiratory: No Immunizations Current: No Ulcer: Yes Tetanus Vaccination: > 5 Years Influenza Vaccination: No Past Surgical History Body Medical Devices: ULCERATIVE COLITIS Coronary Artery Bypass Graft: No Other Surgery: No Social History Alcohol Use: Yes (RARELY) Tobacco Use: No Substance Use: No Allergies-Medications (Allergen,Severity, Reaction): Coded Allergies: azathioprine (Verified Adverse Reaction, Severe, NAUSEA, 04/08/17) azithromycin (Verified Adverse Reaction, Severe, Nausea/Vomiting, 04/08/17) EFFECTS COLITIS clindamycin (Verified Adverse Reaction, Severe, NAUSEA, 04/08/17) erythromycin base (Verified Adverse Reaction, Severe, Nausea/Vomiting, 04/08/17) EFFECTS COLITIS Reported Meds & Prescriptions Reported Meds & Active Scripts Active Reported Amlodipine (Amlodipine Besylate) 10 Mg Tab 10 Mg PO DAILY Review of Systems Except as stated in HPI: all other systems reviewed are Neg General / Constitutional: No: Fever, Chills Eyes: No: Blurred Vision, Photophobia HENT: No: Headaches, Lightheadedness Cardiovascular: Positive: Chest Pain or Discomfort (reproducible left pectoralis major muscle pain. This is the same pain. He has been seen multiple times for.), No: Palpitations Respiratory: No: Cough, Shortness of Breath Gastrointestinal: No: Nausea, Vomiting, Abdominal Pain Genitourinary: No: Dysuria, Decreased Urinary Output Musculoskeletal: Positive: Pain (achy sensation in his left pectoralis muscle) , No: Myalgias, Weakness Neurologic: Positive: Other (patient states he felt jittery today.), No: Weakness, Dizziness, Headache, Change in Mentation Psychiatric: Positive: Anxiety, No: Depression, Suicidal Ideations, Mood Disorder, Substance Abuse Physical Exam Narrative GENERAL: Well-developed well-nourished male in no acute respiratory chest SKIN: Focused skin assessment warm/dry. HEAD: Atraumatic. Normocephalic. EYES: No scleral icterus. No injection or drainage. ENT: No nasal bleeding or discharge. Mucous membranes pink and moist. NECK: Trachea midline. Supple. CARDIOVASCULAR: Regular rate and rhythm. No murmur appreciated. RESPIRATORY: No accessory muscle use. Clear to auscultation. Breath sounds equal bilaterally. GASTROINTESTINAL: Abdomen soft, non-tender, nondistended. Hepatic and splenic margins not palpable. MUSCULOSKELETAL: No obvious deformities. No clubbing. No cyanosis. No edema. NEUROLOGICAL: Awake and alert. No obvious cranial nerve deficits. Motor grossly within normal limits. Normal speech. PSYCHIATRIC: Appropriate mood and affect; insight and judgment normal. Data Data Last Documented VS Vital Signs Date Time Temp Pulse Resp B/P (MAP) Pulse Ox O2 Delivery O2 Flow Rate FiO2 04/08/17 16:30 97.8 84 16 135/75 (95) 100 Room Air Orders Orders Electrocardiogram (04/08/17 14:31) Basic Metabolic Panel (Bmp) (04/08/17 14:31) Ckmb (Isoenzyme) Profile (04/08/17 14:31) Complete Blood Count With Diff (04/08/17 14:31) D-Dimer (04/08/17 14:31) Magnesium (Mg) (04/08/17 14:31) Prothrombin Time / Inr (Pt) (04/08/17 14:31) Act Partial Throm Time (Ptt) (04/08/17 14:31) Troponin I (04/08/17 14:31) Aspirin Chew (Aspirin Chew) (04/08/17 14:45) Chest, Pa & Lat (04/08/17 14:31) Thyroid Stimulating Hormone (04/08/17 11:30) Iv Access Insert/Monitor (04/08/17 17:00) Sodium Chlor 0.9% 1000 Ml Inj (Ns 1000 M (04/08/17 17:00) Labs Laboratory Tests Test 04/08/17 11:30 White Blood Count 7.3 TH/MM3 Red Blood Count 4.77 MIL/MM3 Hemoglobin 14.6 GM/DL Hematocrit 42.7 % Mean Corpuscular Volume 89.6 FL Mean Corpuscular Hemoglobin 30.7 PG Mean Corpuscular Hemoglobin Concent 34.3 % Red Cell Distribution Width 12.6 % Platelet Count 270 TH/MM3 Mean Platelet Volume 7.9 FL Neutrophils (%) (Auto) 63.4 % Lymphocytes (%) (Auto) 21.2 % Monocytes (%) (Auto) 13.6 % Eosinophils (%) (Auto) 0.6 % Basophils (%) (Auto) 1.2 % Neutrophils # (Auto) 4.7 TH/MM3 Lymphocytes # (Auto) 1.6 TH/MM3 Monocytes # (Auto) 1.0 TH/MM3 Eosinophils # (Auto) 0.0 TH/MM3 Basophils # (Auto) 0.1 TH/MM3 CBC Comment DIFF FINAL Differential Comment Prothrombin Time 11.3 SEC Prothromb Time International Ratio 1.0 RATIO Activated Partial Thromboplast Time 28.5 SEC D-Dimer Quantitative (PE/DVT) LESS THAN 0.19 MG/L FEU Blood Urea Nitrogen 14 MG/DL Creatinine 1.15 MG/DL Random Glucose 152 MG/DL Calcium Level 9.0 MG/DL Magnesium Level 1.9 MG/DL Sodium Level 136 MEQ/L Potassium Level 3.6 MEQ/L Chloride Level 102 MEQ/L Carbon Dioxide Level 25.4 MEQ/L Anion Gap 9 MEQ/L Estimat Glomerular Filtration Rate 69 ML/MIN Total Creatine Kinase 89 U/L Troponin I LESS THAN 0.02 NG/ML Thyroid Stimulating Hormone 3rd Gen 1.090 uIU/ML MDM Medical Decision Making Medical Screen Exam Complete: Yes Emergency Medical Condition: Yes Differential Diagnosis ACS versus muscle skeletal pain versus dehydration versus hyper thyroidism. Narrative Course This is a 46-year-old male with a history of atypical chest pain, acute life stressors, who presents here with complaints of jitteriness and clammy hands. Patient also has been having intermittent left sided chest wall pain and its reproducible for several years. He's been seen and evaluated before several times. He's even had a stress test several years ago for the same thing. He's been told multiple times that that it is chest wall. The patient gives history that he's been going through acute life stressors and has having financial troubles in concerned that he may lose his house. The patient's been given a liter of IV fluid. He states he feels much improved and is symptom-free. I did discuss with him that I can give him some information about counselors who can possibly help him through his acute life stressors. He is states he be grateful for that information. Diagnosis Primary Impression: atypical left sided chest wall pain. Additional Impressions: acute life stressors. History of ulcerative colitis Referrals: [facility] (Out patient) Additional Instructions: Drink plenty of fluids. Return if feeling worse. Disposition: 01 DISCHARGE HOME Condition: Stable Perez Ron MD Apr 08, 2017 17:08
[2017-04-08 18:01] VITALS: BP 130/77; TEMP 97.8
--- NOTE | 2017-04-09 18:43 | EKG ---
Date Performed: 04/08/2017 Time Performed: 15:26:50 PTAGE: 46 years EKG: Sinus rhythm NORMAL ECG Compared to prior tracing no significant change PREVIOUS TRACING : 04/13/2016 08.33 DOCTOR: Bette Yip Interpretating Date/Time 04/09/2017 18:41:56
== END 2017-04-08 18:02 | disposition home or self-care (01) ==
LOC: NEPE 14:16
DX: R07.89 Other chest pain (principal); K51.90 Ulcerative colitis, unspecified, without complications; I10 Essential (primary) hypertension; Z79.899 Other long term (current) drug therapy
CPT/HCPCS: 71020; 80048; 82550; 83735; 84443; 84484; 85025; 85379; 85610; 85730; 93005; 96360; 99285; J7030

== ENCOUNTER 2017-06-25 08:09 | Emergency (ER) | payer BC ==
[~2017-06-25] VITALS: Ht 185.4 cm; Wt 82.0 kg
[~2017-06-25 08:09] MED LIST changes: -ASPI-351
[2017-06-25 08:12] VITALS: BP 152/90; PULSE 87; RESP 14; TEMP 98.7; O2SAT 100
[2017-06-25 08:19] VITALS: BP 147/89; PULSE 86; RESP 22; O2SAT 100
[2017-06-25 08:26] VITALS: O2SAT 100
[2017-06-25 08:28] VITALS: BP_SYST 145; BP_SYST 147; BP_DIAS 88; BP_DIAS 89; PULSE 82; RESP 19; O2SAT 100
[2017-06-25] MEDS ORDERED: SODIUM CHLORIDE 0.9% FLUSH 10 ML FLUSH IVF PRN (08:30)
--- NOTE | 2017-06-25 08:30 | PD ---
HPI Chief Complaint: Chest Pain Time Seen by Provider: 08:24 Travel History International Travel<30 days: No Contact w/Intl Traveler<30days: No Traveled to known affect area: No History of Present Illness HPI 46-year-old male patient with history of ulcerative colitis, hypertension, presents to the ER today with palpitations, anxiety, shortness of breath, left parasternal sharp 6 out of 10 chest discomfort. He denies other symptoms. 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 He has had some similar symptoms in the past an has been evaluated. He states he woke up with it, does not know of any exacerbating or relieving factors. He admits that he has been feeling a little unsteady, having some sweats and chills. He reports he has had prior stress testing which was not unremarkable. Modifying Factors: None Associated Signs & Symptoms: Chest discomfort, shortness of breath, palpitations , anxiety, feeling lightheaded, chills Risk Factors: Similar symptoms in the past PFSH Past Medical History Asthma: Yes (Childhood) Blood Disorders: No Anxiety: No Depression: No Heart Rhythm Problems: No Cancer: No Cardiac Catheterization: No Cardiovascular Problems: Yes High Cholesterol: No Chest Pain: Yes Congestive Heart Failure: No Diabetes: No Diminished Hearing: No Endocrine: No Gastrointestinal Disorders: Yes (ULCERATIVE COLITIS) GERD: Yes Genitourinary: No Hiatal Hernia: No Heparin Induced Thrombocytopen: No Hypertension: Yes Immune Disorder: No Implanted Vascular Access Dvce: No Kidney Stones: Yes Musculoskeletal: No Neurologic: No Psychiatric: No Reproductive: No Respiratory: No Immunizations Current: No Ulcer: Yes Past Surgical History Body Medical Devices: ULCERATIVE COLITIS Coronary Artery Bypass Graft: No Other Surgery: No Social History Alcohol Use: Yes (RARELY) Tobacco Use: No Substance Use: No Allergies-Medications (Allergen,Severity, Reaction): Coded Allergies: azathioprine (Verified Adverse Reaction, Severe, NAUSEA, 06/25/17) azithromycin (Verified Adverse Reaction, Severe, Nausea/Vomiting, 06/25/17) EFFECTS COLITIS clindamycin (Verified Adverse Reaction, Severe, NAUSEA, 06/25/17) erythromycin base (Verified Adverse Reaction, Severe, Nausea/Vomiting, ) EFFECTS COLITIS Reported Meds & Prescriptions Reported Meds & Active Scripts Active Reported Aspirin Low Dose (Aspirin) 81 Mg Chew 81 Mg CHEW DAILY Remicade Inj (Infliximab) 100 Mg Inj 840 Mg IV EVERY 8 WEEKS Amlodipine (Amlodipine Besylate) 10 Mg Tab 10 Mg PO DAILY Review of Systems Except as stated in HPI: all other systems reviewed are Neg Physical Exam Narrative GENERAL: Well-developed mildly anxious appearing middle age white male patient currently in mild distress. Awake alert oriented 3. SKIN: Focused skin assessment warm/dry. HEAD: Atraumatic. Normocephalic. EYES: Pupils equal and round. No scleral icterus. No injection or drainage. ENT: No nasal bleeding or discharge. Mucous membranes pink and moist. NECK: Trachea midline. No JVD. Supple. CARDIOVASCULAR: Regular rate and rhythm. No murmur appreciated. Pulses are present equal bilaterally. RESPIRATORY: No accessory muscle use. Clear to auscultation. Breath sounds equal bilaterally. GASTROINTESTINAL: Abdomen soft, non-tender, nondistended. Hepatic and splenic margins not palpable. MUSCULOSKELETAL: No obvious deformities. No clubbing. No cyanosis. No edema. NEUROLOGICAL: Awake and alert. No obvious cranial nerve deficits. Motor grossly within normal limits. Normal speech. PSYCHIATRIC: Appropriate mood and affect; insight and judgment normal. Data Data Last Documented VS Vital Signs Date Time Temp Pulse Resp B/P (MAP) Pulse Ox O2 Delivery O2 Flow Rate FiO2 06/25/17 08:28 82 19 145/88 (107) 100 Room Air 147/89 (108) 06/25/17 08:26 2.00 06/25/17 08:12 98.7 Orders Orders Electrocardiogram (06/25/17 08:24) Ckmb (Isoenzyme) Profile (06/25/17 08:24) Complete Blood Count With Diff (06/25/17 08:24) Comprehensive Metabolic Panel (06/25/17 08:24) Magnesium (Mg) (06/25/17 08:24) Prothrombin Time / Inr (Pt) (06/25/17 08:24) Act Partial Throm Time (Ptt) (06/25/17 08:24) Troponin I (06/25/17 08:24) Chest, Single Ap (06/25/17 08:24) Ecg Monitoring (06/25/17 08:24) Bilateral Bp Monitoring (06/25/17 08:24) Iv Access Insert/Monitor (06/25/17 08:24) Oximetry (06/25/17 08:24) Oxygen Administration (06/25/17 08:24) Sodium Chloride 0.9% Flush (Ns Flush) (06/25/17 08:30) CKMB (06/25/17 08:29) CKMB% (06/25/17 08:29) Labs Laboratory Tests Test 06/25/17 08:29 White Blood Count 7.0 TH/MM3 Red Blood Count 5.23 MIL/MM3 Hemoglobin 16.0 GM/DL Hematocrit 46.8 % Mean Corpuscular Volume 89.5 FL Mean Corpuscular Hemoglobin 30.7 PG Mean Corpuscular Hemoglobin Concent 34.3 % Red Cell Distribution Width 12.8 % Platelet Count 280 TH/MM3 Mean Platelet Volume 7.8 FL Neutrophils (%) (Auto) 46.0 % Lymphocytes (%) (Auto) 36.4 % Monocytes (%) (Auto) 13.7 % Eosinophils (%) (Auto) 2.4 % Basophils (%) (Auto) 1.5 % Neutrophils # (Auto) 3.2 TH/MM3 Lymphocytes # (Auto) 2.6 TH/MM3 Monocytes # (Auto) 1.0 TH/MM3 Eosinophils # (Auto) 0.2 TH/MM3 Basophils # (Auto) 0.1 TH/MM3 CBC Comment DIFF FINAL Differential Comment Prothrombin Time 10.7 SEC Prothromb Time International Ratio 1.1 RATIO Activated Partial Thromboplast Time 27.3 SEC Blood Urea Nitrogen 12 MG/DL Creatinine 1.15 MG/DL Random Glucose 125 MG/DL Total Protein 8.7 GM/DL Albumin 4.6 GM/DL Calcium Level 9.5 MG/DL Magnesium Level 2.1 MG/DL Alkaline Phosphatase 117 U/L Aspartate Amino Transf (AST/SGOT) 23 U/L Alanine Aminotransferase (ALT/SGPT) 36 U/L Total Bilirubin 0.7 MG/DL Sodium Level 137 MEQ/L Potassium Level 4.0 MEQ/L Chloride Level 105 MEQ/L Carbon Dioxide Level 24.4 MEQ/L Anion Gap 8 MEQ/L Estimat Glomerular Filtration Rate 69 ML/MIN Total Creatine Kinase 105 U/L Creatine Kinase MB LESS THAN 0.5 NG/ML Troponin I LESS THAN 0.02 NG/ML MDM Medical Decision Making Medical Screen Exam Complete: Yes Emergency Medical Condition: Yes Medical Record Reviewed: Yes Interpretation(s) EKG shows normal sinus rhythm at a rate of 80 bpm with no signs of acute ST-T changes. Laboratory Tests Test 06/25/17 08:29 Monocytes (%) (Auto) 13.7 % (0.0-8.0) Monocytes # (Auto) 1.0 TH/MM3 (0-0.9) Random Glucose 125 MG/DL (74-106) Total Protein 8.7 GM/DL (6.4-8.2) Estimat Glomerular Filtration Rate 69 ML/MIN (>89) Creatine Kinase MB LESS THAN 0.5 NG/ML Troponin I LESS THAN 0.02 NG/ML Last 24 hours Impressions Chest X-Ray 06/25/17 0824 Signed Impressions: Service Date/Time: Sunday, June 25, 2017 08:33 - CONCLUSION: 1. Subtle opacity in the left medial upper lobe may be artifactual in etiology. However, developing airspace consolidation cannot be excluded in the appropriate clinical setting. Deep Tang MD Differential Diagnosis Chest discomfort, palpitations, shortness of breath, anxiety: Dysrhythmias versus anxiety attack versus electrolyte abnormality versus dehydration versus ACS Narrative Course Chest x-ray does show a left-sided infiltrates possibly concerning for early pneumonia. He has having chills around feeling sweaty as well last night. My plan would be to treat him in have him follow-up with primary care doctor. Return for worsening in symptoms as needed. The plan has been discussed with him he states understanding. Diagnosis Primary Impression: Pneumonia Med/Other Pt SpecificInfo: Prescription(s) given Scripts Ibuprofen (Ibuprofen) 600 Mg Tab 600 MG PO Q6H Y for Pain/Inflammation, #20 TAB 0 Refills Prov: Ryan Rocha MD 06/25/17 Levofloxacin (Levofloxacin) 500 Mg Tablet 500 MG PO DAILY for Infection, #14 TAB 0 Refills Prov: Ryan Rocha MD 06/25/17 Disposition: 01 DISCHARGE HOME Condition: Stable Ryan Rocha MD Jun 25, 2017 08:30
[2017-06-25] MEDS ORDERED: ASPI81CH6 CHEW (08:33)
[2017-06-25 08:52] LABS: AUTOMATED NEUTROPHIL # 3.2 TH/MM3 (1.8-7.7); BASOPHIL # 0.1 TH/MM3 (0-0.2); BASOPHIL % 1.5 % (0.0-2.0); EOSINOPHIL # 0.2 TH/MM3 (0-0.4); EOSINOPHIL % 2.4 % (0.0-4.0); HEMATOCRIT 46.8 % (39.0-51.0); LYMPH % 36.4 % (9.0-44.0); LYMPHOCYTE # 2.6 TH/MM3 (1.0-4.8); MEAN CELL VOLUME 89.5 FL (80.0-100.0); MEAN CORPUSCULAR HEMOGLOBIN 30.7 PG (27.0-34.0); MEAN CORPUSCULAR HGB CONC 34.3 % (32.0-36.0); MEAN PLATELET VOLUME 7.8 FL (7.0-11.0); MONO % 13.7 % (0.0-8.0); PLATELET COUNT 280 TH/MM3 (150-450); RED BLOOD COUNT 5.23 MIL/MM3 (4.50-5.90); RED CELL DISTRIBUTION WIDTH 12.8 % (11.6-17.2)
[2017-06-25 08:59] LABS: INTERNATIONAL NORMALIZED RATIO 1.1 RATIO; PROTHROMBIN TIME - PATIENT 10.7 SEC (9.8-11.6)
[2017-06-25 09:00] VITALS: BP 129/83; PULSE 74; RESP 12; O2SAT 100
--- NOTE | 2017-06-25 09:05 | RADRPT ---
EXAM DATE/TIME: 06/25/2017 08:33 [facility] COMPARISON: CHEST PA & LAT, April 08, 2017, 14:48. CHEST SINGLE AP, April 12, 2016, 15:52. INDICATIONS : Left side chest pain, shortness of breath, and dizziness. No known injury. MEDICAL HISTORY : Cardiovascular disease. Hypertension SURGICAL HISTORY : None. ENCOUNTER: Subsequent ACUITY: 1 day PAIN SCORE: 4/10 LOCATION: Left chest FINDINGS: Subtle opacity in the left medial upper lobe. Cardiomediastinal contours are within normal limits. Carlos ny thorax is intact. CONCLUSION: 1. Subtle opacity in the left medial upper lobe may be artifactual in etiology. However, developing a irspace consolidation cannot be excluded in the appropriate clinical setting. Deep Tang MD on June 25, 2017 at 9:01 Board Certified Radiologist. This report was verified electronically.
[2017-06-25 09:08] LABS: ALBUMIN 4.6 GM/DL (3.4-5.0); ALT (GPT) 36 U/L (12-78); AST (GOT) 23 U/L (15-37); BICARBONATE 24.4 MEQ/L (21.0-32.0); BLOOD UREA NITROGEN 12 MG/DL (7-18); CALCIUM 9.5 MG/DL (8.5-10.1); CHLORIDE 105 MEQ/L (98-107); CREATININE 1.15 MG/DL (0.60-1.30); GLOMERULAR FILTRATION RATE 69 ML/MIN (>89); GLUCOSE,RANDOM 125 MG/DL (74-106); MAGNESIUM 2.1 MG/DL (1.5-2.5); SODIUM (NA) 137 MEQ/L (136-145)
[2017-06-25 09:13] LABS: ALKALINE PHOSPHATASE 117 U/L (45-117); TOTAL BILIRUBIN ADULT 0.7 MG/DL (0.2-1.0); TOTAL PROTEIN 8.7 GM/DL (6.4-8.2); TROPONIN I LESS THAN 0.02 NG/ML (0.02-0.05)
[2017-06-25] MEDS ORDERED: LEVO500T8 PO (09:35)
[2017-06-25] MEDS ORDERED: IBUP-232 PO (09:35)
--- NOTE | 2017-06-25 17:21 | EKG ---
Date Performed: 06/25/2017 Time Performed: 08:20:46 PTAGE: 46 years EKG: Sinus rhythm NORMAL ECG INTERPRETATION BASED ON A DEFAULT AGE OF 41 YEARS NO PREVIOUS TRACING DOCTOR: Celi Oliveros Interpretating Date/Time 06/25/2017 17:19:32
[2017-06-26] MEDS ORDERED: LORA-475 PO (22:17)
== END 2017-06-25 10:45 | disposition home or self-care (01) ==
LOC: NEPC 08:09
DX: J18.9 Pneumonia, unspecified organism (principal); J45.909 Unspecified asthma, uncomplicated; I10 Essential (primary) hypertension; K21.9 Gastro-esophageal reflux disease without esophagitis
CPT/HCPCS: 71045; 80053; 82550; 82552; 83735; 84484; 85025; 85610; 85730; 93005; 99285

== ENCOUNTER 2017-06-26 19:08 | Emergency (ER) | payer BC ==
[~2017-06-26] VITALS: Ht 185.4 cm; Wt 81.8 kg
[~2017-06-26 19:08] MED LIST changes: +ASPI81CH6 CHEW; +IBUP-232 PO; +LEVO500T8 PO
[2017-06-26 19:09] VITALS: BP 156/99; PULSE 111; RESP 16; TEMP 98.9; O2SAT 100
--- NOTE | 2017-06-26 20:54 | PD ---
HPI . Dizziness Chief Complaint: Dizziness Time Seen by Provider: 20:29 Travel History International Travel<30 days: No Contact w/Intl Traveler<30days: No Traveled to known affect area: No History of Present Illness HPI Patient presents with chief complaint of dizziness. Onset was this evening shortly prior to arrival. 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 He states that he's been very stressed out having to work 2 jobs to support his family. He states that he was seen here last night with similar symptoms and was diagnosed with pneumonia. He states that he does not really have any symptoms of pneumonia such as cough or fever. He denies any difficulty breathing. He states that he felt great today and went to his first job and had no difficulty throughout the course of the day. He then went to his second job and had the aforementioned symptoms. He states that his symptoms are spontaneously abating. PFSH Past Medical History Asthma: Yes (Childhood) Blood Disorders: No Anxiety: No Depression: No Heart Rhythm Problems: No Cancer: No Cardiac Catheterization: No Cardiovascular Problems: Yes High Cholesterol: No Chest Pain: Yes Congestive Heart Failure: No Diabetes: No Diminished Hearing: No Endocrine: No Gastrointestinal Disorders: Yes (ULCERATIVE COLITIS) GERD: Yes Genitourinary: No Hiatal Hernia: No Heparin Induced Thrombocytopen: No Hypertension: Yes Immune Disorder: No Implanted Vascular Access Dvce: No Kidney Stones: Yes Musculoskeletal: No Neurologic: No Psychiatric: No Reproductive: No Respiratory: No Immunizations Current: No Ulcer: Yes Past Surgical History Body Medical Devices: ULCERATIVE COLITIS Coronary Artery Bypass Graft: No Other Surgery: No Social History Alcohol Use: Yes (RARELY) Tobacco Use: No Substance Use: No Allergies-Medications (Allergen,Severity, Reaction): Coded Allergies: azathioprine (Verified Adverse Reaction, Severe, NAUSEA, 06/25/17) azithromycin (Verified Adverse Reaction, Severe, Nausea/Vomiting, 06/25/17) EFFECTS COLITIS clindamycin (Verified Adverse Reaction, Severe, NAUSEA, 06/25/17) erythromycin base (Verified Adverse Reaction, Severe, Nausea/Vomiting, ) EFFECTS COLITIS Reported Meds & Prescriptions Reported Meds & Active Scripts Active Ibuprofen 600 Mg Tab 600 Mg PO Q6H PRN Levofloxacin 500 Mg Tablet 500 Mg PO DAILY Reported Aspirin Low Dose (Aspirin) 81 Mg Chew 81 Mg CHEW DAILY Remicade Inj (Infliximab) 100 Mg Inj 840 Mg IV EVERY 8 WEEKS Amlodipine (Amlodipine Besylate) 10 Mg Tab 10 Mg PO DAILY Review of Systems Except as stated in HPI: all other systems reviewed are Neg General / Constitutional: Positive: Other (fatigue) Cardiovascular: Positive: Chest Pain or Discomfort Skin: Positive Other (clammy) Neurologic: Positive: Other (shaking) Physical Exam Narrative GENERAL: Healthy-appearing gentleman in no acute distress. SKIN: warm/dry. Normal color and turgor. HEAD: Normocephalic. Atraumatic. EYES: Pupils equal and round. No scleral icterus. No injection or drainage. ENT: No nasal bleeding or discharge. Mucous membranes pink and moist. NECK: Trachea midline. Full range of motion without pain.. CARDIOVASCULAR: Regular rate and rhythm. Heart sounds are normal. RESPIRATORY: No accessory muscle use. Clear to auscultation. Breath sounds equal bilaterally. Positive left-sided chest wall tenderness. GASTROINTESTINAL: Abdomen soft. Nontender. Bowel sounds present. Nondistended. MUSCULOSKELETAL: No obvious deformities. NEUROLOGICAL: Awake and alert. No obvious cranial nerve deficits. Motor grossly within normal limits. Normal speech. PSYCHIATRIC: Appropriate mood and affect; insight and judgment normal. Data Data Last Documented VS Vital Signs Date Time Temp Pulse Resp B/P (MAP) Pulse Ox O2 Delivery O2 Flow Rate FiO2 06/26/17 21:02 84 18 139/85 (103) 99 Room Air 06/26/17 19:09 98.9 Orders Orders Electrocardiogram (06/26/17 19:15) Complete Blood Count With Diff (06/26/17 19:15) Comprehensive Metabolic Panel (06/26/17 19:15) Magnesium (Mg) (06/26/17 19:15) Ckmb (Isoenzyme) Profile (06/26/17 19:15) Troponin I (06/26/17 19:15) Sodium Chlor 0.9% 1000 Ml Inj (Ns 1000 M (06/26/17 21:00) Lorazepam Inj (Ativan Inj) (06/26/17 21:00) Labs Laboratory Tests Test 06/26/17 20:21 White Blood Count 7.3 TH/MM3 Red Blood Count 5.17 MIL/MM3 Hemoglobin 16.1 GM/DL Hematocrit 45.4 % Mean Corpuscular Volume 87.8 FL Mean Corpuscular Hemoglobin 31.1 PG Mean Corpuscular Hemoglobin Concent 35.5 % Red Cell Distribution Width 12.8 % Platelet Count 285 TH/MM3 Mean Platelet Volume 7.9 FL Neutrophils (%) (Auto) 56.7 % Lymphocytes (%) (Auto) 30.4 % Monocytes (%) (Auto) 11.0 % Eosinophils (%) (Auto) 0.7 % Basophils (%) (Auto) 1.2 % Neutrophils # (Auto) 4.1 TH/MM3 Lymphocytes # (Auto) 2.2 TH/MM3 Monocytes # (Auto) 0.8 TH/MM3 Eosinophils # (Auto) 0.1 TH/MM3 Basophils # (Auto) 0.1 TH/MM3 CBC Comment DIFF FINAL Differential Comment Blood Urea Nitrogen 12 MG/DL Creatinine 1.09 MG/DL Random Glucose 102 MG/DL Total Protein 8.8 GM/DL Albumin 4.9 GM/DL Calcium Level 9.8 MG/DL Magnesium Level 2.0 MG/DL Alkaline Phosphatase 115 U/L Aspartate Amino Transf (AST/SGOT) 16 U/L Alanine Aminotransferase (ALT/SGPT) 33 U/L Total Bilirubin 0.7 MG/DL Sodium Level 136 MEQ/L Potassium Level 3.8 MEQ/L Chloride Level 102 MEQ/L Carbon Dioxide Level 24.1 MEQ/L Anion Gap 10 MEQ/L Estimat Glomerular Filtration Rate 73 ML/MIN Total Creatine Kinase 76 U/L Troponin I LESS THAN 0.02 NG/ML MDM Medical Decision Making Medical Screen Exam Complete: Yes Emergency Medical Condition: Yes Differential Diagnosis Differential diagnosis of dizziness includes but is not limited to vertigo, dehydration, acute blood loss, sepsis, ACS Narrative Course This patient presents for the second time in 2 days with the chief complaint of dizziness. It sounds like to me is having panic attacks. Repeat cardiac workup has been ordered. In the interim, I will treat him with IV fluids and IV Ativan. Disposition will then be made based upon his response to treatment and the results of his labs. The patient does tell me at the onset that he needs to go to work tomorrow. CBC & BMP Diagram 06/26/17 20:21 Total Protein 8.8 H, Albumin 4.9, Calcium Level 9.8, Magnesium Level 2.0, Alkaline Phosphatase 115, Aspartate Amino Transf (AST/SGOT) 16, Alanine Aminotransferase (ALT/SGPT) 33, Total Bilirubin 0.7 trop < 0.02 This patient feels much better following Ativan. I believe that he is having panic attacks. I will discharge him to home with a short course of Ativan. He is to call his insurance company tomorrow to obtain primary care follow-up. Diagnosis Primary Impression: Anxiety Patient Instructions: Anxiety (DC), General Instructions Additional Instructions: Clear insurance company tomorrow to obtain a primary care physician Med/Other Pt SpecificInfo: Prescription(s) given Scripts Lorazepam (Ativan) 2 Mg Tab 2 MG PO Q6H Y for ANXIETY AND/OR AGITATION, #12 TAB 0 Refills Prov: Richelle Hays MD 06/26/17 Disposition: DISCHARGE HOME Condition: Stable Richelle Hays MD Jun 26, 2017 20:54
[2017-06-26] MEDS ORDERED: SODIUM CHLOR 0.9% 1000 ML INJ 1,000 ML IV ONE (21:00)
[2017-06-26] MEDS ORDERED: LORazepam 2 MG/ML VIAL IV PUSH ONE (21:00)
[2017-06-26 21:02] VITALS: BP 139/85; PULSE 84; RESP 18; O2SAT 99
[2017-06-26 21:04] LABS: ALBUMIN 4.9 GM/DL (3.4-5.0); ALT (GPT) 33 U/L (12-78); AST (GOT) 16 U/L (15-37); BICARBONATE 24.1 MEQ/L (21.0-32.0); BLOOD UREA NITROGEN 12 MG/DL (7-18); CALCIUM 9.8 MG/DL (8.5-10.1); CHLORIDE 102 MEQ/L (98-107); CREATININE 1.09 MG/DL (0.60-1.30); GLOMERULAR FILTRATION RATE 73 ML/MIN (>89); GLUCOSE,RANDOM 102 MG/DL (74-106); SODIUM (NA) 136 MEQ/L (136-145)
[2017-06-26 21:08] LABS: ALKALINE PHOSPHATASE 115 U/L (45-117); TOTAL BILIRUBIN ADULT 0.7 MG/DL (0.2-1.0); TOTAL PROTEIN 8.8 GM/DL (6.4-8.2); TROPONIN I LESS THAN 0.02 NG/ML (0.02-0.05)
[2017-06-26 21:13] LABS: AUTOMATED NEUTROPHIL # 4.1 TH/MM3 (1.8-7.7); BASOPHIL # 0.1 TH/MM3 (0-0.2); BASOPHIL % 1.2 % (0.0-2.0); EOSINOPHIL # 0.1 TH/MM3 (0-0.4); EOSINOPHIL % 0.7 % (0.0-4.0); HEMATOCRIT 45.4 % (39.0-51.0); HEMOGLOBIN 16.1 GM/DL (13.0-17.0); LYMPH % 30.4 % (9.0-44.0); LYMPHOCYTE # 2.2 TH/MM3 (1.0-4.8); MEAN CELL VOLUME 87.8 FL (80.0-100.0); MEAN CORPUSCULAR HEMOGLOBIN 31.1 PG (27.0-34.0); MEAN CORPUSCULAR HGB CONC 35.5 % (32.0-36.0); MEAN PLATELET VOLUME 7.9 FL (7.0-11.0); MONOCYTE # 0.8 TH/MM3 (0-0.9); NEUT % 56.7 % (16.0-70.0); PLATELET COUNT 285 TH/MM3 (150-450); RED BLOOD COUNT 5.17 MIL/MM3 (4.50-5.90); RED CELL DISTRIBUTION WIDTH 12.8 % (11.6-17.2); WHITE BLOOD COUNT 7.3 TH/MM3 (4.0-11.0)
[2017-06-26] MEDS ORDERED: LORA-475 PO (22:17)
--- NOTE | 2017-06-27 00:26 | EKG ---
Date Performed: 06/26/2017 Time Performed: 19:57:11 PTAGE: 46 years EKG: Sinus rhythm POSSIBLE LEFT ATRIAL ENLARGEMENT BORDERLINE ECG PREVIOUS TRACING : 06/25/2017 08.20 Since the prior tracing, there has been no significant bland DOCTOR: Ravinder Patterson Interpretating Date/Time 06/27/2017 00:25:35
== END 2017-06-26 23:24 | disposition home or self-care (01) ==
LOC: NEPC 19:08
DX: F41.9 Anxiety disorder, unspecified (principal); R42 Dizziness and giddiness; R07.9 Chest pain, unspecified; J45.909 Unspecified asthma, uncomplicated; K21.9 Gastro-esophageal reflux disease without esophagitis; I10 Essential (primary) hypertension; Z87.442 Personal history of urinary calculi; Z88.8 Allergy status to other drugs, medicaments and biological substances
CPT/HCPCS: 80053; 82550; 83735; 84484; 85025; 93005; 96361; 96374; 99284; J2060; J7030

== ENCOUNTER 2017-11-12 17:50 | Emergency (ER) | payer BC ==
[~2017-11-12] VITALS: Ht 185.4 cm; Wt 78.0 kg
[~2017-11-12 17:50] MED LIST changes: -LEVO500T8 PO; +TYLE325T PO
[2017-11-12 17:56] VITALS: BP 169/87; PULSE 74; RESP 17; TEMP 98; O2SAT 100
== END 2017-11-12 19:52 | disposition left against medical advice (07) ==
LOC: NED 17:50
DX: R07.9 Chest pain, unspecified (principal)
CPT/HCPCS: 99281